=== PATIENT | female | born 1980 | race Caucasian/White ===

== ENCOUNTER 2024-06-23 22:23 | Emergency (ER) | payer BC, OTHER ==
[2024-06-23 22:32] VITALS: RESP 18; BMI 26.1
[2024-06-24 01:57] VITALS: BP 119/81; PULSE 71; TEMP 98.2
[2024-06-24] MEDS: ELECTROLYTE-148 SOLN 1,000 ML IV ONE (02:15)
== END 2024-06-24 04:18 | disposition home or self-care (01) ==
LOC: JER 22:23
PROC: 3E0337Z Introduction of Electrolytic and Water Balance Substance into Peripheral Vein, Percutaneous Approach (ICD-10-PCS; principal; 2024-06-24)
PROC: 3E0337Z Introduction of Electrolytic and Water Balance Substance into Peripheral Vein, Percutaneous Approach (ICD-10-PCS; 2024-06-24)
DX: O09.512 Supervision of elderly primigravida, second trimester (principal); O12.02 Gestational edema, second trimester; Z3A.20 20 weeks gestation of pregnancy
CPT/HCPCS: 93971-TC; 99284-25

== ENCOUNTER 2024-08-24 03:15 | Inpatient (IN) | payer BC, OTHER ==
[2024-08-24] MEDS: LACTATED RINGERS SOLUTION 500 ML IV ONE ×2 (04:00→05:00)
[2024-08-24 04:30] LABS: INR 0.85 (0.83-1.09); PROTHROMBIN TIME (PATIENT) 9.8 SEC (9.7-13.0)
[2024-08-24 04:32] LABS: ACTIVATED PTT 25.4 SECONDS (25.2-36.5)
[2024-08-24 04:41] LABS: CHLORIDE 108 mmol/L (98-107); POTASSIUM 4.3 mmol/L (3.5-5.1); SODIUM 137 mmol/L (136-145)
[2024-08-24 04:42] LABS: CALCIUM 9.4 mg/dL (8.5-10.1)
[2024-08-24 04:44] LABS: ANION GAP 9 mmol/L (4-13); BLOOD UREA NITROGEN 14.5 mg/dL (7-18); CO2 20 mmol/L (21-32); GLUCOSE,RANDOM 90 mg/dL (74-106)
[2024-08-24 04:47] LABS: CREATININE 0.8 mg/dL (0.55-1.3)
[2024-08-24 05:25] LABS: BASO % 0.2 % (0-2.0); EOS % 0.8 % (0-4.5); HEMATOCRIT 32.6 % (32.4-45.2); HEMOGLOBIN 10.9 GM/dL (10.7-15.3); MCH 27.9 pg (25.7-33.7); MCHC 33.3 g/dl (32.0-36.0); MEAN CELL VOLUME 83.6 fl (80-96); MONO % 5.6 % (3.8-10.2); NEUT % 75.4 % (42.8-82.8); PLATELET COUNT 351 10^3/uL (134-434); RDW 13.7 % (11.6-15.6); WHITE BLOOD COUNT 11.9 K/mm3 (4.0-10.0)
[2024-08-24 05:30] VITALS: BMI 24.2
[2024-08-24] MEDS ORDERED: morphine SULFATE (PF) 1 MG/2 ML SYRINGE ONE (11:38)
[2024-08-24] MEDS ORDERED: LACTATED RINGERS SOLUTION 1,000 ML IV SCH (11:45)
[2024-08-24] MEDS ORDERED: IBUPROFEN 600 MG TABLET (FP) PO PRN (12:38)
[2024-08-24] MEDS ORDERED: ONDANSETRON 4 MG/2 ML VIAL IVPB PRN (12:38)
[2024-08-24] MEDS ORDERED: IBUPROFEN 800 MG/8 ML IJ IVPB PRN (12:38)
[2024-08-24] MEDS: OXYTOCIN 20 UNITS in 0.9% NS 20 UNIT/1,000 ML INFUS.BAG IV SCH (12:50)
[2024-08-24 13:43] LABS: CORD BASE EXCESS -6.1 mmol/L (0-2); CORD HCO3 19.9 mmHg (20-29); CORD HCO3 21.6 mmHg (20-29); CORD PCO2 41.2 mmHg (30-78); CORD PCO2 55.2 mmHg (30-78); CORD pH 7.211 (7.14-7.44); CORD pH 7.302 (7.14-7.44)
[2024-08-24] MEDS: CEFAZOLIN 2 GM/D5W 2 GM/50 ML ML IVPB SCH (15:30)
[2024-08-24] MEDS: SENNOSIDES/DOCUSATE COMBO (SENNA PLUS) TABLET (UD) PO SCH (21:27)
[2024-08-24] MEDS: FERROUS SO4 325 MG TABLET (FP) PO SCH (21:27)
[2024-08-24] MEDS: CITRIC ACID/SODIUM CITRATE 30 ML UNIT-DOSE CUP PO ONE (22:38)
[2024-08-25] MEDS: ACETAMINOPHEN 1000 MG/100 ML BAG IVPB PRN (06:53)
[2024-08-25 06:57] LABS: BASO % 0.1 % (0-2.0); EOS % 0.1 % (0-4.5); HEMATOCRIT 30.3 % (32.4-45.2); HEMOGLOBIN 10.3 GM/dL (10.7-15.3); LYMPH % 11.1 % (8-40); MCH 28.2 pg (25.7-33.7); MCHC 33.9 g/dl (32.0-36.0); MEAN CELL VOLUME 83.2 fl (80-96); MEAN PLT VOLUME 9.6 fl (7.5-11.1); MONO % 4.7 % (3.8-10.2); PLATELET COUNT 321 10^3/uL (134-434); RBC 3.64 M/mm3 (3.60-5.2); RDW 13.7 % (11.6-15.6); WHITE BLOOD COUNT 19.4 K/mm3 (4.0-10.0)
[2024-08-25] MEDS: PRENATAL VITAMINS W/ FOLIC ACID TABLET (FP) PO SCH (10:02)
[2024-08-25] MEDS: ENOXAPARIN NA (PORCINE) 40 MG/0.4 ML DISP.SYRIN SQ SCH (10:02)
[2024-08-25] MEDS ORDERED: BISACODYL 10 MG SUPP.RECT RC PRN (12:38)
[2024-08-25] MEDS: ACETAMINOPHEN 325 MG TABLET (FP) PO PRN (17:12)
[2024-08-25] MEDS: SIMETHICONE 80 MG TAB.CHEW (FP) PO PRN (17:13)
[2024-08-26] MEDS: oxyCODONE HCL 5 MG TABLET PO PRN (05:45)
[2024-08-26 22:05] VITALS: RESP 16
[2024-08-27 13:37] VITALS: BP 119/67; PULSE 74; TEMP 98
== END 2024-08-27 13:41 | disposition home or self-care (01) | DRG 788 ==
LOC: JLDR 03:15 → J3W 15:40
PROVIDERS: ADMIT Obstetrics & Gynecology; ATTEND Obstetrics & Gynecology
PROC: 10D00Z1 Extraction of Products of Conception, Low, Open Approach (ICD-10-PCS; principal; 2024-08-24)
DX: O76 Abnormality in fetal heart rate and rhythm complicating labor and delivery (principal); O36.5930 Maternal care for other known or suspected poor fetal growth, third trimester, not applicable or unspecified; O69.81X0 Labor and delivery complicated by cord around neck, without compression, not applicable or unspecified; Z3A.37 37 weeks gestation of pregnancy; Z37.0 Single live birth
CPT/HCPCS: 36415; 36600; 80048; 82803; 85025; 85610; 85730; 86780; 86850; 86900; 86901; 88307-TC; J0131